=== PATIENT | female | born 1950 | race Caucasian/White ===

== ENCOUNTER 2018-04-02 16:34 | Emergency (ER) | payer MEDICARE, BC ==
--- NOTE | 2018-04-03 09:51 | UC ---
Discharge - Sign-Out/Discharge Documenting (check all that apply): Post-Discharge Follow Up All imaging exams completed and their final reports reviewed: No Studies - Discharge Plan Disposition: LEFT WITHOUT BEING SEEN Referrals: Tiffanie Starks MD [Primary Care Provider] - - Billing Disposition and Condition Disposition: Left Without Being Seen
== END 2018-04-02 17:20 | disposition left against medical advice (07) ==
LOC: UCCORT 16:34

== ENCOUNTER 2019-03-19 08:30 | Emergency (ER) | payer MEDICARE, BC ==
[2019-03-19 08:48] VITALS: BP 141/74
--- NOTE | 2019-03-19 09:13 | UC ---
Throat Pain/Nasal [place] HPI - HPI Summary HPI Summary: 68-year-old woman comes in with a chief complaint of sore throat. Started 3 days ago. She did notice a canker sore on the right side. Pain is worse on the left posterior pharynx. Hurts when she swallows. Feels very fatigued. She is able swallow and breathe although does hurt when she swallows. No known sick contacts. No chest congestion. - History of Current Complaint Chief Complaint: UCGeneralIllness Stated Complaint: SORE THROAT CONGESTION Time Seen by Provider: 03/19/19 08:39 Pain Intensity: 7 - Allergies/Home Medications Allergies/Adverse Reactions: Allergies Allergy/AdvReac Type Severity Reaction Status Date / Time codeine Allergy Facial Verified 03/19/19 08:43 Redness/Flushing Home Medications: Home Medications ALPRAZolam TAB* [Xanax TAB*] 1 mg PO TID PRN 03/19/19 [History Confirmed ] Ibuprofen TAB* [Advil TAB*] 400 mg PO Q6H PRN 03/19/19 [History Confirmed ] Zolpidem TAB* [Ambien TAB*] 5 mg PO BEDTIME PRN 03/19/19 [History Confirmed 09/05] PMH/Surg Hx/FS Hx/Imm Hx Previously Healthy: Yes - Surgical History Surgical History: Yes Surgery Procedure, Year, and Place: Bladder surgeries x4 - Family History Known Family History: Positive: Non-Contributory - Social History Alcohol Use: None Substance Use Type: None Smoking Status (MU): Never Smoked Tobacco Review of Systems All Other Systems Reviewed And Are Negative: Yes Constitutional: Positive: Fatigue Skin: Positive: Negative Eyes: Positive: Negative ENT: Positive: Sore Throat Respiratory: Positive: Negative Cardiovascular: Positive: Negative Gastrointestinal: Positive: Negative Motor: Positive: Negative Neurovascular: Positive: Negative Musculoskeletal: Positive: Negative Neurological: Positive: Negative Psychological: Positive: Negative Is Patient Immunocompromised?: No Physical Exam Triage Information Reviewed: Yes Appearance: Well-Appearing, No Pain Distress, Well-Nourished Vital Signs: Initial Vital Signs Temp 98.2 F 03/19/19 08:43 Pulse 73 03/19/19 08:43 Resp 18 03/19/19 08:43 BP 141/74 03/19/19 08:43 Pulse Ox 98 03/19/19 08:43 Vital Signs Reviewed: Yes Eye Exam: Normal Eyes: Positive: Conjunctiva Clear ENT: Positive: Pharyngeal erythema, Tonsillar swelling - Left tonsil is erythematous and swollen. I do not see evidence of peritonsillar abscess at this time. She also has a canker sore on the right oral mucosa. Oropharynx is open. Voice is normal Neck: Positive: Supple Respiratory: Positive: Lungs clear, Normal breath sounds, No respiratory distress Cardiovascular: Positive: RRR Musculoskeletal: Positive: Strength Intact, ROM Intact Neurological: Positive: Alert Psychological: Positive: Age Appropriate Behavior Skin Exam: Normal Throat Pain/Nasal Course/Dx - Course Course Of Treatment: DISCUSSED VIRAL VERSES BACTERIAL INFECTION AND THE ROLE OF ANTIBIOTICS. THE PATIENT PREFERS TO BE ON ANTIBIOTICS AT THIS TIME. - Differential Dx/Diagnosis Provider Diagnosis: Tonsillitis Discharge ED - Sign-Out/Discharge Documenting (check all that apply): Patient Departure All imaging exams completed and their final reports reviewed: No Studies - Discharge Plan Condition: Stable Disposition: HOME Prescriptions: Amoxicillin PO (*) [Amoxicillin 875 MG (*)] 875 mg PO BID #20 tab Magic Mouth Was-GARRETT/MAAL/LIDO* 5 ml SWISH SWAL QID #60 ml Patient Education Materials: Tonsillitis (ED) Referrals: Tiffanie Starks MD [Primary Care Provider] - Additional Instructions: FOLLOW UP WITH YOUR DOCTOR IF NOT COMPLETELY IMPROVED. GET REEVALUATED SOONER IF YOUR CONDITION WORSENS OR ANY QUESTIONS OR CONCERNS. - Billing Disposition and Condition Condition: STABLE Disposition: Home
== END 2019-03-19 09:19 | disposition home or self-care (01) ==
LOC: UCCORT 08:30
DX: J03.90 Acute tonsillitis, unspecified (principal)
CPT/HCPCS: 87651; 99212; G0463